=== PATIENT | male | born 1995 | race Caucasian/White ===

== ENCOUNTER 2024-12-04 17:09 | Emergency (ER) | payer MEDICAID ==
[~2024-12-04] VITALS: Ht 170.2 cm; Wt 49.3 kg
[2024-12-04 17:14] VITALS: O2SAT 100
[2024-12-04] MEDS: SODIUM CHLORIDE 0.9% 1,000 ML IV ONE (17:35)
[2024-12-04 17:40] LABS: CHLORIDE 107 mEq/L (98-107); POTASSIUM 3.4 mEq/L (3.5-5.1); SODIUM 145 mEq/L (136-145)
[2024-12-04 17:41] LABS: CALCIUM 8.9 mg/dL (8.7-10.4); CARBON DIOXIDE 29 mEq/L (21-32)
[2024-12-04 17:46] LABS: BASOPHILS % 0.6 % (0.0-2.0); CREATININE 0.9 mg/dL (0.6-1.3); EOSINOPHILS % 0.6 % (0.0-5.0); GLUCOSE 103 mg/dL (70-105); HEMATOCRIT. 41.4 % (42.0-52.0); LYMPHOCYTES % 48.3 % (20.0-50.0); MEAN CORPUSCULAR HEMOGLOBIN 32.5 pg (28.0-32.0); MEAN CORPUSCULAR HGB CONC 33.8 g/dL (31.0-37.0); MEAN CORPUSCULAR VOLUME 96.1 fL (80.0-94.0); MEAN PLATELET VOLUME 7.1 fl (7.4-10.4); MONOCYTES % 6.1 % (2.0-8.0); NEUTROPHILS % 44.4 % (40.0-76.0); PLATELET 281 x1000/uL (130-400); RED BLOOD CELL COUNT 4.31 mill/uL (4.7-6.1); RED CELL DISTRIBUTION WIDTH 13.6 % (11.6-14.6); UREA NITROGEN BLOOD 9 mg/dL (9-23); WHITE BLOOD COUNT 3.2 x1000/uL (4.5-11.0)
[2024-12-04 17:47] LABS: AMMONIA < 17 uMol/L (<32); TROPONIN I HIGH SENSITIVITY 8 ng/L (3.0-53)
[2024-12-04 17:48] LABS: ACETAMINOPHEN < 2 ug/mL (10-30); CREATINE KINASE 128 IU/L (46-171)
[2024-12-04 17:57] LABS: PROTHROMBIN TIME 10.8 sec (9.6-11.0)
[2024-12-04 18:04] LABS: ETHANOL BLOOD 549 mg/dL (<10)
[2024-12-04 18:06] LABS: CLARITY URINE CLEAR (CLEAR); COLOR URINE YELLOW (YELLOW); GLUCOSE URINE NEGATIVE (NEGATIVE); KETONES URINE NEGATIVE (NEGATIVE); LEUKOCYTE ESTERASE URINE NEGATIVE (NEGATIVE); NITRITE URINE NEGATIVE (NEGATIVE); OCCULT BLOOD URINE 1+ (NEGATIVE); PROTEIN URINE NEGATIVE (NEGATIVE); SPECIFIC GRAVITY URINE 1.005 (1.005-1.030); UROBILINOGEN URINE 0.2 E.U./dL (0.2-1.0)
[2024-12-04 18:21] LABS: *AMPHETAMINES SCREEN URINE NEGATIVE (NEGATIVE); *BARBITURATES SCREEN URINE NEGATIVE (NEGATIVE); *BENZODIAZEPINES SCREEN URINE NEGATIVE (NEGATIVE); *COCAINE SCREEN URINE NEGATIVE (NEGATIVE); METHADONE URINE SCREEN NEGATIVE (NEGATIVE); OPIATES URINE SCREEN NEGATIVE (NEGATIVE)
[2024-12-04 18:22] LABS: CANNABINOID URINE SCREEN NEGATIVE (NEGATIVE); ECSTASY MDMA SCREEN URINE NEGATIVE (NEGATIVE); PHENCYCLIDINE URINE SCREEN NEGATIVE (NEGATIVE)
[2024-12-04 19:16] LABS: BACTERIA URINE TRACE; SQUAMOUS EPITHELIAL CELL URINE RARE /lpf (RARE/1+); WBC URINE 0-2 /hpf (0-2)
[2024-12-04] MEDS ORDERED: ONDANSETRON HCL 4MG/2ML INJ IV PRN (20:30)
[2024-12-04] MEDS ORDERED: DOCUSATE SODIUM 100MG CAPSULE PO PRN (20:30)
[2024-12-04] MEDS ORDERED: ACETAMINOPHEN 325MG TABLET PO PRN (20:30)
[2024-12-04] MEDS ORDERED: GUAIFENESIN 200MG/10ML SUGAR FREE UDC PO PRN (20:30)
[2024-12-04] MEDS ORDERED: MAGNESIUM/ALUMINUM HYDROXIDE/SIMETHICONE 30ML UDC PO PRN (20:30)
[2024-12-04] MEDS ORDERED: DEXTROSE 50% WATER 50ML SYRINGE IV PRN (20:30)
[2024-12-04] MEDS ORDERED: CLONIDINE 0.1MG TABLET PO PRN (20:30)
[2024-12-04] MEDS ORDERED: LORAZEPAM 2MG/ML INJ IV PRN ×2 (20:30→22:15)
[2024-12-04] MEDS ORDERED: IPRATROPIUM/ALBUTEROL 0.5-3(2.5)MG/3ML NEB HHN PRN (20:30)
[2024-12-04] MEDS ORDERED: KCL 20MEQ/100ML PREMIX 100 ML IV NR (20:36)
[2024-12-04] MEDS ORDERED: MVI, ADULT NO.1 10 ML, FOLIC ACID 1 MG, THIAMINE HCL 100 MG in SODIUM CHLORIDE 0.9% 1,0... IV SCH (21:30)
[2024-12-04] MEDS: LORAZEPAM 2MG/ML INJ IV NR (22:13)
[2024-12-04 23:16] VITALS: BP 132/90; PULSE 110; RESP 23; TEMP 36.8; O2SAT 98
[2024-12-05] MEDS ORDERED: THIAMINE HCL 100MG TABLET PO SCH (09:00)
[2024-12-05] MEDS ORDERED: FOLIC ACID 1MG TABLET PO SCH (09:00)
[2024-12-05] MEDS ORDERED: PANTOPRAZOLE SODIUM 40 MG/VIAL IV SCH (09:00)
== END 2024-12-05 04:43 | disposition left against medical advice (07) ==
LOC: ER 17:09 → EDBEDREQ 19:30 → ER 12-05 04:43 → CANBEDREQ 12-05 05:35
DX: F10.129 Alcohol abuse with intoxication, unspecified (principal); F41.9 Anxiety disorder, unspecified; R41.82 Altered mental status, unspecified; Z79.899 Other long term (current) drug therapy; Y90.8 Blood alcohol level of 240 mg/100 ml or more
CPT/HCPCS: 80305; 80048; 81003; 80307; 80329; 80320; 82140; 82550; 83735; 84443; 85025; 85379; 85610; 86850; 86900; 86901; 84484; 36415; 71045; 70450; 93005; 96361; 96374; 99285; J2060; J7030; Z7610; J3411; J3490; G0480

== ENCOUNTER 2025-09-19 03:50 | Inpatient (IN) | payer SELFPAY ==
[~2025-09-19] VITALS: Ht 165.1 cm; Wt 55.8 kg
[2025-09-19 03:52] VITALS: O2SAT 99
[2025-09-19] MEDS: LORAZEPAM 2MG/ML UD SYRINGE IV NR (05:49)
[2025-09-19] MEDS: CHLORDIAZEPOXIDE 25MG CAPSULE PO ONE (05:50)
[2025-09-19 05:58] LABS: HEMATOCRIT. 42.8 % (42.0-52.0); HEMOGLOBIN. 14.7 g/dL (14.0-18.0); MEAN PLATELET VOLUME 7.3 fl (7.4-10.4); PLATELET 324 x1000/uL (130-400); RED BLOOD CELL COUNT 4.74 mill/uL (4.7-6.1); RED CELL DISTRIBUTION WIDTH 14.9 % (11.6-14.6)
[2025-09-19] MEDS: FOLIC ACID 1 MG, THIAMINE HCL 100 MG, MVI, ADULT NO.1 10 ML in DEXTROSE 5% WATER 1,000 ML IV ONE (06:06)
[2025-09-19 06:09] LABS: CREATININE 0.9 mg/dL (0.6-1.3); UREA NITROGEN BLOOD 7 mg/dL (9-23)
[2025-09-19 06:10] LABS: ETHANOL BLOOD < 10 mg/dL (<10)
[2025-09-19 06:45] LABS: BAND% 1.0 % (1.0-6.0); LYMPHOCYTES % MANUAL 10.0 % (20.0-50.0); MONOCYTES % MANUAL 1.0 % (2.0-8.0); NEUTROPHILS % MANUAL 88.0 % (45.0-75.0); PLATELET ESTIMATE NORMAL
[2025-09-19 11:10] VITALS: BP 131/90; PULSE 106; RESP 18; TEMP 37.1; O2SAT 98
[2025-09-19 11:30] VITALS: BP 131/90; PULSE 106; RESP 20; TEMP 37.0852
[2025-09-19] MEDS ORDERED: MULT-1146 MT (11:45)
[2025-09-19] MEDS ORDERED: CLONIDINE 0.1MG TABLET PO PRN (13:15)
[2025-09-19] MEDS ORDERED: DOCUSATE SODIUM 100MG CAPSULE PO PRN (13:15)
[2025-09-19] MEDS ORDERED: ONDANSETRON HCL 4MG/2ML INJ IV PRN (13:15)
[2025-09-19] MEDS ORDERED: IPRATROPIUM/ALBUTEROL 0.5-3(2.5)MG/3ML NEB HHN PRN (13:15)
[2025-09-19] MEDS ORDERED: MVI, ADULT NO.1 10 ML, FOLIC ACID 1 MG, THIAMINE HCL 100 MG in SODIUM CHLORIDE 0.9% 1,0... IV SCH (13:15)
[2025-09-19] MEDS ORDERED: ACETAMINOPHEN 325MG TABLET PO PRN ×2 (13:15)
[2025-09-19] MEDS: CHLORDIAZEPOXIDE 25MG CAPSULE PO SCH (14:33)
[2025-09-19] MEDS: SODIUM CHLORIDE 0.9% 1,000 ML IV SCH (14:34)
[2025-09-19] MEDS ORDERED: LORAZEPAM 0.5MG TABLET PO PRN (15:15)
[2025-09-19 16:29] VITALS: BP 109/64; PULSE 64; RESP 18; TEMP 36.6; O2SAT 100
[2025-09-19 18:06] LABS: TRIGLYCERIDE 79.0 mg/dL (0-150)
[2025-09-19 18:07] LABS: LDL CHOLESTEROL 99.0 mg/dL (5-100)
[2025-09-20] VITALS: BP 131/72; PULSE 60; RESP 18; TEMP 36.4; O2SAT 98
[2025-09-20 04:00] VITALS: BP 117/69; PULSE 55; RESP 18; TEMP 36.2; O2SAT 98
[2025-09-20 08:00] VITALS: BP 137/89; PULSE 65; RESP 16; TEMP 36.4; O2SAT 100
[2025-09-20 08:08] LABS: BASOPHILS % 0.8 % (0.0-2.0); EOSINOPHILS % 1.7 % (0.0-5.0); HEMATOCRIT. 45.0 % (42.0-52.0); HEMOGLOBIN. 15.2 g/dL (14.0-18.0); LYMPHOCYTES % 34.2 % (20.0-50.0); MEAN PLATELET VOLUME 7.5 fl (7.4-10.4); MONOCYTES % 8.1 % (2.0-8.0); NEUTROPHILS % 55.2 % (40.0-76.0); PLATELET 284 x1000/uL (130-400); RED BLOOD CELL COUNT 4.93 mill/uL (4.7-6.1); RED CELL DISTRIBUTION WIDTH 14.5 % (11.6-14.6)
[2025-09-20 08:24] LABS: CREATININE 0.9 mg/dL (0.6-1.3); PROTEIN TOTAL 6.9 g/dL (6.0-8.3); UREA NITROGEN BLOOD < 5 mg/dL (9-23)
[2025-09-20 08:26] LABS: ASPARTATE AMINOTRANSFERASE 36 IU/L (<34); BILIRUBIN TOTAL 1.6 mg/dL (0.1-1.0)
[2025-09-20 08:28] LABS: FOLIC ACID (FOLATE) SERUM 11.74 ng/mL (>5.38); VITAMIN B12 SERUM 303 pg/mL (211-911)
[2025-09-20] MEDS: THIAMINE HCL 100MG TABLET PO SCH (10:12)
[2025-09-20] MEDS: MULTIVITAMINS,THER W-MINERALS TABLET PO SCH (10:12)
[2025-09-20] MEDS: FOLIC ACID 1MG TABLET PO SCH (10:12)
[2025-09-20] MEDS ORDERED: CHLO25CA11 MT (11:05)
[2025-09-20] MEDS ORDERED: FOLI-43 PO (11:05)
[2025-09-20] MEDS ORDERED: THIA100T72 PO (11:05)
[2025-09-20 12:00] VITALS: BP 108/69; PULSE 65; RESP 16; TEMP 36.6; O2SAT 100
[2025-09-20 12:15] VITALS: BP 108/69; PULSE 65; RESP 16; TEMP 97.8
== END 2025-09-20 13:45 | disposition home or self-care (01) | DRG 775 ==
LOC: ER 03:50 → 6WST 08:07 → EDBEDREQ 08:14 → EDBEDREQTM 08:14
PROVIDERS: ADMIT Internal Medicine; ATTEND Internal Medicine
DX: F10.939 Alcohol use, unspecified with withdrawal, unspecified (principal); R17 Unspecified jaundice; D72.829 Elevated white blood cell count, unspecified
CPT/HCPCS: 36415; 80048; 80053; 80061; 80320; 82140; 82607; 82746; 83036; 84443; 85025; 93005; 96365; 96375; 99291; J2060; J3411; J3490; J7030; J7070; G0480